=== PATIENT | female | born 1950 | race Caucasian/White ===

== ENCOUNTER → 2017-01-21 | Outpatient (CLI) | payer OTHER ==
--- NOTE | 2017-01-21 10:56 | DIAGNOSTIC IMAGING REPORT ---
Cervical spine series 3 views CLINICAL HISTORY: Neck pain COMPARISON STUDY: No previous studies for comparison. FINDINGS: The prevertebral soft tissues are normal. There are moderate multilevel degenerative changes with moderate disc space narrowing at C3-4 through C6-7 levels. There are prominent anterior osteophytic spurs. There is uncovertebral joint spurring. No fractures are visualized. IMPRESSION: Moderate multilevel degenerative change. Electronically signed by: Fredy Gomez M.D. 01/21/2017 10:54 AM Dictated Date/Time: 01/21/2017 10:54 AM
== END | disposition home or self-care (01) ==
LOC: C.RAD1850 10:34
PROVIDERS: ATTEND Internal Medicine
DX: M54.2 Cervicalgia (principal); N20.0 Calculus of kidney

== ENCOUNTER → 2017-01-21 | Outpatient (CLI) | payer OTHER ==
[2017-01-21 17:46] LABS: URINE APPEARANCE CLEAR (CLEAR); URINE BILIRUBIN NEG (NEG); URINE COLOR DK YELLOW; URINE NITRITE NEG (NEG); URINE PH 5.5 (4.5-7.5); URINE SPECIFIC GRAVITY 1.027 (1.000-1.030); UROBILINOGEN NEG (NEG)
[2017-01-21 17:50] LABS: MANUAL MICROSCOPIC REQUIRED? NO; REVIEW REQ? NO
== END | disposition home or self-care (01) ==
LOC: C.LABSPEC 17:24
PROVIDERS: ATTEND Internal Medicine
DX: N20.0 Calculus of kidney (principal)

== ENCOUNTER → 2017-01-26 | Outpatient (CLI) | payer OTHER ==
--- NOTE | 2017-01-26 14:47 | MAMMOGRAPHY REPORT ---
UNILATERAL RIGHT DIGITAL SCREENING MAMMOGRAM TOMOSYNTHESIS WITH CAD: 01/26/2017 CLINICAL HISTORY: Asymptomatic. Personal history of breast cancer. TECHNIQUE: Breast tomosynthesis in addition to standard 2D mammography was performed. Current study was also evaluated with a Computer Aided Detection (CAD) system. Right CC and MLO 2-D and tomosynthe sis images were obtained. COMPARISON: Comparison is made to exams dated: 01/23/2016 mammogram, 01/22/2015 mammogram, 01/09/2014 ma mmogram, 12/18/2012 mammogram, 12/09/2011 mammogram, and 11/25/2010 mammogram - [facility]. BREAST COMPOSITION: The tissue of the right breast is heterogeneously dense, which may obscure small masses. FINDINGS: No suspicious masses, calcifications, or areas of architectural distortion are noted in th e right breast. There has been no significant interval change compared to prior exams. IMPRESSION: ACR BI-RADS CATEGORY 1: NEGATIVE There is no mammographic evidence of malignancy in the right breast. A 1 year screening mammogram is recommended. The patient will receive written notification of the results. Approximately 10% of breast cancers are not detected with mammography. A negative mammographic report should not delay biopsy if a clinically suggestive mass is present. Yamileth Arnett M.D. ah/:01/26/2017 12:28:03 Hitcher: Cora HERNANDEZ([place])(M), [facility] letter sent: Normal 1/2 BI-RADS Code: ACR BI-RADS Category 1: Negative
== END | disposition home or self-care (01) ==
LOC: C.MAMM 09:28
PROVIDERS: ATTEND Obstetrics & Gynecology
DX: Z12.31 Encounter for screening mammogram for malignant neoplasm of breast (principal); Z85.3 Personal history of malignant neoplasm of breast; Z90.12 Acquired absence of left breast and nipple